=== PATIENT | female | born 1965 | race Caucasian/White ===

== ENCOUNTER 2021-01-22 17:53 | Emergency (ER) | payer MEDICAID, OTHER ==
[~2021-01-22] VITALS: Ht 162.6 cm; Wt 56.7 kg
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
[2021-01-22] MEDS ORDERED: KETOROLAC TROMETHAMINE INJ 30 MG/ML VIAL ONE (18:28)
[2021-01-22] MEDS: KETOROLAC TROMETHAMINE INJ 60 MG/2 ML VIAL IM ONE (18:32)
[2021-01-22] MEDS ORDERED: CYCL10TA9 PO (18:58)
[2021-01-22] MEDS ORDERED: IBUP-1955 PO (18:58)
[2021-01-22 19:10] VITALS: BP 131/84
--- NOTE | 2021-01-22 19:10 | NUR ---
Patient discharged to home in stable condition. Written and verbal after care instructions given. Patient verbalizes understanding of instruction.
== END 2021-01-22 19:10 | disposition home or self-care (01) ==
LOC: ER 18:02
DX: M54.2 Cervicalgia (principal); M54.50 Low back pain, unspecified; V49.49XA Driver injured in collision with other motor vehicles in traffic accident, initial encounter; Y93.89 Activity, other specified; Y92.413 State road as the place of occurrence of the external cause; Y99.8 Other external cause status
CPT/HCPCS: 70450; 72125; 96372; 99284; J1885